=== PATIENT | male | born 1935 | race Caucasian/White ===

== ENCOUNTER 2016-10-28 07:01 | Day surgery (SDC) | payer MEDICARE, OTHER ==
[~2016-10-28 07:01] MED LIST: CIPROFLOXACIN HCL 500 MG TABLET PO PRN
--- OUTSIDE RECORDS SUMMARY | 2016-10-28 07:04 | XMS REPORT | Continuity of Care Document ---
:1935 Author Organization [facility] ([facility]) Address [address] [place] [place] [address] Phone [phone] Care Team Providers Name Role Phone NaomyElijah Primary Care Provider [phone] Source Comments This disclosure is being made pursuant to the Care Everywhere program, applicable federal and state laws, and may not contain all informaitonavailable regarding this patient.[facility] ([facility]) Active Allergies and Adverse Reactions Allergen Noted Date Severity Reactions Comments Oxybutynin Chloride 07/06/2014 OTHER Causes abdominal pain. Current Medications Prescription Sig. Disp. Refills Start Date End Date Status HYDROmorphone 4 mg Take 4 mg by mouth Active tablet every 3 hours as needed. levothyroxine 50 mcg Take 50 mcg by mouth Active tablet every morning before breakfast. cyanocobalamin inject 500 mcg Active (VITAMIN B-12) 1000 intramuscularly Every mcg/mL injection morning. loratadine 10 mg Take 10 mg by mouth Active tablet as needed. indomethacin 50 mg Take 50 mg by mouth 2 Active capsule times daily as needed. pravastatin 40 mg Take 40 mg by mouth Active tablet at bedtime. zolpiDEM 10 mg Take 10 mg by mouth Active tablet at bedtime as needed. omeprazole 40 mg Take 40 mg by mouth Active enteric coated daily. capsule flurazepam 15 mg Take 15 mg by mouth Active capsule at bedtime as needed. sildenafil (VIAGRA) Take 50 mg by mouth Active 50 mg tablet as needed. Take 1 hour prior to sexual activity. naproxen 500 mg Take 500 mg by mouth Active tablet 2 times daily as needed. DULoxetine 20 mg XR Take 20 mg by mouth Active capsule daily. multivitamin with Take 1 Tab by mouth Active minerals tablet daily. ALPRAZolam 0.25 mg Take 0.25 mg by mouth Active tablet daily as needed. finasteride 5 mg Take 1 tablet (5 mg 60 tablet 6 12/18/2015 Active tablet total) by mouth daily. Active Problems Problem Noted Date Bleeding in head following injury with loss of consciousness 05/14/2013 Immunizations Name Dates Previously Given Next Due Influenza, unspecified 02/12/2013 Pneumococcal, unspecified 05/14/2010 Social History Tobacco Use Types Packs/Day Years Used Date Never Smoker Smokeless Tobacco: Never Used Alcohol Use Drinks/Week oz/Week Comments No Last Filed Vital Signs Vital Sign Reading Time Taken Blood Pressure 140/84 07/08/2014 11:35 AM SALESPERSON FLYING SQUAD Pulse 68 07/08/2014 11:35 AM SALESPERSON [employer]YING [employer]AD Temperature 36.7 C (98.1 F) 07/08/2014 11:35 AM SALESPERSON FLYING SQUAD Respiratory Rate 18 07/08/2014 11:35 AM SALESPERSON FLYING SQUAD Height 1.702 m (5' 7") 07/08/2014 11:35 AM SALESPERSON FLYING SQUAD Weight 71.668 kg (158 lb) 07/08/2014 11:35 AM SALESPERSON FLYING SQUAD Body Mass Index 24.74 07/08/2014 11:35 AM SALESPERSON [employer]YING SQUAD Oxygen Saturation 98% 07/08/2014 11:35 AM SALESPERSON [employer]YING SQUAD Plan of Care Health Maintenance Due Date Last Done Comments Hepatitis B Vaccine (1 of 3 - Primary Series) 1935 Tdap Vaccine 1946 Lipid Disorder Screening 1953 Td Vaccine 1953 Colonoscopy 07/12/1985 Zoster Vaccine 1995 Pneumococcal Vaccine (1 of 2 - PCV13) 2000 Influenza Vaccine: Seasonal (#1) 12/21/2015 02/12/2013 Results from Last 3 Months Not on file
--- OUTSIDE RECORDS SUMMARY | 2016-10-28 07:04 | XMS REPORT | Continuity of Care Document ---
:1935 Author Organization [facility] [place] [address] Care Team Providers Name Role Phone Elijah Moralez Primary Care Provider [phone] Source Comments This disclosure is being made pursuant to the [employer] program and maynot contain all information available regarding this patient.[facility] Active Allergies and Adverse Reactions Allergen Noted Date Severity Reactions Comments Oxybutynin Chloride 08/04/2016 Low Nausea Only Causes abdominal pain. Current Medications Be aware that medications may not be up to date as of this document. Alwaysverify current medications with the patient. Prescription Sig. Disp. Refills Start Date End Date Status levothyroxine Take 50 mcg by Active (SYNTHROID, mouth daily. LEVOTHROID) 50 MCG tablet MOVANTIK 25 MG TABS Take 1 tablet 06/03/2016 Active tablet by mouth daily. omeprazole Take 1 capsule 05/30/2016 Active (PRILOSEC) 40 MG by mouth capsule daily. fexofenadine Take 180 mg by Active (YESENIA ALLERGY) mouth daily as 180 MG tablet needed. pravastatin Take 40 mg by Active (PRAVACHOL) 40 MG mouth daily. tablet albuterol (PROAIR Inhale 2 puffs Active HFA;PROVENTIL into the lungs HFA;VENTOLIN HFA) every 4 (four) 108 (90 Base) hours as MCG/ACT inhaler needed for Wheezing. HYDROmorphone Take 3.5 210 tablet 0 10/10/2016 Active (DILAUDID) 8 MG tablets (28 mg tablet total) by mouth 2 (two) times daily. zolpidem (AMBIEN) Take 1 tablet 30 tablet 5 09/08/2016 10 MG tablet (10 mg total) 7 by mouth nightly as needed for Sleep. HYDROmorphone Take 3.5 210 tablet 0 09/08/2016 (DILAUDID) 8 MG tablets (28 mg 7 tablet total) by mouth 2 (two) times daily Earliest Fill Date: 09/08/16. HYDROmorphone Take 2 tablets 180 tablet 0 10/10/2016 Discontinued (DILAUDID) 4 MG (8 mg total) 7 tablet by mouth every 6 (six) hours as needed for Pain. HYDROmorphone Take 14 mg by Discontinued (DILAUDID) 4 MG mouth 2 (two) 7 tablet times daily. HYDROmorphone Take 3.5 210 tablet 0 10/10/2016 Discontinued (DILAUDID) 4 MG tablets (14 mg 7 tablet total) by mouth 2 (two) times daily. Active Problems Problem Noted Date Impaired fasting glucose 08/04/2016 Hyperlipidemia Hypertension Hypothyroidism (acquired) Most Recent Encounters Date Type Specialty Providers Description 10/10/2016 Orders Only Family Elijah Gill MD 10/10/2016 Refill Family Medicine Janet Del Rosario, LIZZY 10/10/2016 Refill Family Medicine Janet Del Rosario, TEXTILE CLOTHING AND FOOTWEAR MECHANIC 10/10/2016 Refill Family Medicine Janet Del Rosario, TEXTILE CLOTHING AND FOOTWEAR MECHANIC 10/10/2016 Refill Orthopedic Surgery Gin Kang, Aimee 09/08/2016 Refill Family Medicine CharlietMoni, RMA 08/12/2016 Office Visit Family Medicine Elijah Moralez, Essential hypertensionMD benign (Primary Dx); Mixed hyperlipidemia; Hypothyroidism (acquired); Impaired fasting blood sugar; Prostate cancer (HCC); Chest wall pain following surgery 08/04/2016 Abstract Family Medicine Janet Del Rosario, LIZZY 07/28/2016 Orders Only Provider, Not In System Immunizations Name Dates Previously Given Next Due Pneumococcal Polysaccharide-23 02/19/2006 Social History Tobacco Use Types Packs/Day Years Used Date Former Smoker Quit: 05/22/1944 Smokeless Tobacco: Never Used Alcohol Use Drinks/Week oz/Week Comments No Last Filed Vital Signs Vital Sign Reading Time Taken Blood Pressure 148/81 08/12/2016 8:42 AM CDT Pulse 67 08/12/2016 8:42 AM CDT Temperature 36.7 C (98 F) 08/12/2016 8:42 AM CDT Respiratory Rate 16 08/12/2016 8:42 AM CDT Height 1.448 m (4' 9") 08/12/2016 8:42 AM CDT Weight 70.761 kg (156 lb) 08/12/2016 8:42 AM CDT Body Mass Index 33.75 08/12/2016 8:42 AM CDT Oxygen Saturation 96% 08/12/2016 8:42 AM CDT Plan of Care Patient Goal Type Goal Blood Pressure Blood Pressure below 140/90 Date Type Specialty Providers Description 08/11/2017 Appointment Oncology Arpit Castillo MD [address] [place] [address] [phone] (Fax) Health Maintenance Due Date Last Done Comments Tetanus/Pertussis (1 - Tdap) 1954 Well Adult Visit 1985 Zoster Vaccine 60+ 1995 Pneumococcal Low/Medium Risk 65+ (2 of 2 - PCV13) 02/19/2007 02/19/2006 Influenza Immunization (#1) 2016 Results from Last 3 Months PSA (08/12/2016 8:45 AM) Component Value Range PSA 1.67 0.00-4.00 ng/mL Narrative Testing performed at [facility], [address] [place] [address].Bitumastic Applier Mark Louis MD TSH (08/12/2016 8:45 AM) Component Value Range TSH 2.105 0.350-4.940 uIU/mL Narrative Testing performed at [facility], [address] [place] [address].Bitumastic Applier Mark Louis MD Hemoglobin A1c (08/12/2016 8:45 AM) Component Value Range Hemoglobin A1C 5.7Comment: % Nondiabetic Patient:4.0 - 6.0 % Diabetic Patient: < 7.0 % Clinical correlation is essential Estimated Avg Glucose 117 mg/dL Narrative Testing performed at [facility], [address] [place] [address].Bitumastic Applier Mark Louis MD Lipid panel (08/12/2016 8:45 AM) Component Value Range Cholesterol 216(H)Comment:Cholesterol borderline high, 200- 0-200 mg/dL 239 mg/dl. Clinical correlation is essential. Triglycerides 118 0-200 mg/dL HDL Cholesterol 53(L) >60 mg/dL LDL Calculated 139.4Comment: mg/dL <100Optimal 100-129 Near Optimal/Above Optimal 130-159 Borderline High 160-189 High >yd=229Wqvf High Cholesterol/HDL Ratio 4.1Comment:HDL:Chol ratio Low Risk 1:3.3-1:4.3, Clinical Correlation essential. Narrative Testing performed at [facility], [address] [place] [address].Bitumastic Applier Mark Louis MD Comprehensive metabolic panel (08/12/2016 8:45 AM) Component Value Range Glucose 107(H)Comment: 60-100 mg/dL Fasting Plasma Glucose (FPG)<100 MG/DL Impaired Fasting Glucose (IFG) 100-125 MG/DL Provisional Diagnosis of Diabetes Mellitus > zy=263 MG/DL (Diagnosis Must Be Confirmed) BUN, Blood 19 8-26 mg/dL Creatinine 0.8 0.7-1.4 mg/dL Glomerular Filtration Rate 86 >80 mL/min/1.73mm2 Estimate Glomerlular Filtration Rate 99Comment:The estimated GFR has >80 mL/min/ 1.73mm2 Estimate- not been validated for women or patients with serious comorbid conditions, or with extremes of body size, muscle mass, or nutritional status. Calcium 9.0 8.4-10.2 mg/dL Sodium 137 136-145 mmol/L Potassium 4.4 3.4-4.9 mmol/L Chloride 104 99-111 mmol/L CO2 25.8 21.0-32.0 mmol/L Albumin 3.5 3.5-5.0 g/dL Total Protein 6.5 6.1-8.0 g/dL Bilirubin Total 0.6 0.2-1.2 mg/dL Alkaline Phosphatase 107 40-150 U/L AST 19 5-34 U/L ALT 15 0-55 u/L Narrative Testing performed at [facility], [address] [place] [address].Bitumastic Applier Mark Louis MD CBC auto differential (08/12/2016 8:45 AM) Component Value Range WBC 6.7 3.1-11.0 x10^3/uL RBC 4.92 4.29-5.55 x10^6/uL Hemoglobin 14.1 13.3-16.5 g/dL Hematocrit 41.9 39.2-48.0 % MCV 85.2 81.0-98.0 fL MCH 28.7 27.2-33.3 pg MCHC 33.7 31.7-35.6 g/dL RDW 13.4 11.4-13.6 % SD-RDW 40.9 36.4-46.3 fL Platelets 215 147-370 x10^3/uL MPV 10.2 9.1-12.1 fL NE% 74.4 42.0-76.0 % %LYMPH 13.6(L) 15.0-44.0 % %MONO 8.9 4.0-13.0 % % Eosinophils 2.4 0.0-6.0 % % Basophils 0.3 0.0-1.0 % Imm Gran Relative 0.4 0.0-1.0 % NE# 5.0 1.2-7.3 x10^3/uL Lymphs # 0.9 0.6-3.5 x10^3/uL [place]# 0.6 0.2-0.9 x10^3/uL Eosinophil # 0.2 0.0-0.4 x10^3/uL Baso# 0.0 0.0-0.1 x10^3/uL Imm Gran Absolute 0.03 0.00-0.10 x10^3/uL Specimen BLOOD Narrative Testing performed at [facility], [address] [place] [address].Bitumastic Applier Mark Louis MD
[2016-10-28 13:15] VITALS: BP 158/88
== END 2016-10-28 07:02 | disposition home or self-care (01) ==
LOC: AMB 07:01
PROVIDERS: ATTEND Urology
PROC: 3E1K88X Irrigation of Genitourinary Tract using Irrigating Substance, Via Natural or Artificial Opening Endoscopic, Diagnostic (ICD-10-PCS; 2016-10-28)
PROC: 0TJB8ZZ Inspection of Bladder, Via Natural or Artificial Opening Endoscopic (ICD-10-PCS; principal; 2016-10-28 08:20)
DX: D49.4 Neoplasm of unspecified behavior of bladder (principal); R31.0 Gross hematuria; Z85.51 Personal history of malignant neoplasm of bladder; Z68.25 Body mass index [BMI] 25.0-25.9, adult

== ENCOUNTER 2016-11-04 06:56 | Day surgery (SDC) | payer MEDICARE, OTHER ==
[~2016-11-04 06:56] MED LIST changes: -CIPROFLOXACIN HCL 500 MG TABLET PO PRN; +RINGERS SOLUTION,LACTATED 1,000 ML IV PRN; +ceFAZolin SODIUM 1 GM in DEXTROSE 5 % IN WATER 100 ML IV PRN
--- OUTSIDE RECORDS SUMMARY | 2016-11-04 07:01 | XMS REPORT | Continuity of Care Document ---
:1935 Author Organization [facility] ([facility]) Address [address] [place] [address] Phone [phone] Care Team Providers Name Role Phone NaomyElijah Primary Care Provider [phone] Source Comments This disclosure is being made pursuant to the Care Everywhere program, applicable federal and state laws, and may not contain all informaitonavailable regarding this patient.[facility] ([facility]) Active Allergies and Adverse Reactions Allergen Noted [...] Taken Blood Pressure 140/84 07/08/2014 11:35 AM FOUNDRY ENGINEER Pulse 68 07/08/2014 11:35 AM FOUNDRY ENGINEER Temperature 36.7 C (98.1 F) 07/08/2014 11:35 AM FOUNDRY ENGINEER Respiratory Rate 18 07/08/2014 11:35 AM FOUNDRY ENGINEER Height 1.702 m (5' 7") 07/08/2014 11:35 AM FOUNDRY ENGINEER Weight 71.668 kg (158 lb) 07/08/2014 11:35 AM FOUNDRY ENGINEER Body Mass Index 24.74 07/08/2014 11:35 AM FOUNDRY ENGINEER Oxygen Saturation 98% 07/08/2014 11:35 AM FOUNDRY ENGINEER Plan of Care Health Maintenance Due Date [...]
--- OUTSIDE RECORDS SUMMARY | 2016-11-04 07:01 | XMS REPORT | Continuity of Care Document ---
:1935 Author Organization [facility] [place] [address] Care Team Providers Name Role Phone Elijah Moralez Primary Care Provider [phone] Source Comments This disclosure is being made pursuant to the [employer] program and maynot contain all information available regarding this patient.[facility] Active Allergies and Adverse Reactions Allergen Noted [...] Wheezing. HYDROmorphone Take 3.5 210 tablet 0 11/03/2016 Active (DILAUDID) 8 MG tablets (28 mg tablet total) by mouth 2 (two) times daily Earliest Fill Date: 11/03/16. zolpidem (AMBIEN) Take 1 tablet 30 tablet [...] total) by mouth 2 (two) times daily. HYDROmorphone Take 3.5 210 tablet 0 10/10/2016 Discontinued (DILAUDID) 8 MG tablets (28 mg 7 tablet total) by mouth 2 (two) times daily. Active Problems Problem Noted Date Impaired fasting glucose 08/04/2016 Hyperlipidemia Hypertension Hypothyroidism (acquired) Most Recent Encounters Date Type Specialty Providers Description 11/02/2016 Refill Family Medicine Charliet, Moni S, RMA 10/31/2016 Orders Only Provider, Not In System 10/10/2016 Orders Only Family Elijah Gill MD 10/10/2016 Refill Family Medicine Janet Del Rosario A, BALE COVERER 10/10/2016 Refill Family Medicine Janet Del Rosario A, BALE COVERER 10/10/2016 Refill Family Medicine Janet Del Rosario, BALE COVERER 10/10/2016 Refill Orthopedic Surgery Gin Kang, RMA 09/08/2016 Refill Family Medicine Covert, Moni S, RMA 08/12/2016 Office Visit Family Elijah Gill Essential hypertensionMD benign (Primary Dx); Mixed hyperlipidemia; Hypothyroidism (acquired); Impaired fasting blood sugar; Prostate cancer (HCC); Chest wall pain following surgery 08/04/2016 Abstract Family Medicine Janet Del Rosario, BALE COVERER Immunizations Name Dates Previously Given Next Due [...] Description 08/11/2017 Appointment Oncology Arpit Castillo MD [address] [place] [address] [phone] (Fax) Health Maintenance Due Date Last Done Comments Tetanus/Pertussis (1 - Tdap) 1954 Well Adult Visit 1985 Zoster Vaccine 60+ 1995 Pneumococcal Low/Medium Risk 65+ (2 of 2 - PCV13) 02/19/2007 02/19/2006 Influenza Immunization (#1) 2016 Results from Last 3 Months US RETROPERITONEAL COMPLETE (10/24/2016)PSA (08/12/2016 8:45 AM) Component Value Range PSA 1.67 0.00-4.00 ng/mL Narrative Testing performed at [facility], [address] [place] [address].Lowerator Operator Mark Louis MD TSH (08/12/2016 8:45 AM) Component Value Range TSH 2.105 0.350-4.940 uIU/mL Narrative Testing performed at [facility], [address] [place] [address].Lowerator Operator Mark Louis MD Hemoglobin A1c (08/12/2016 8:45 AM) Component Value Range Hemoglobin A1C 5.7Comment: % Nondiabetic Patient:4.0 - 6.0 % Diabetic Patient: < 7.0 % Clinical correlation is essential Estimated Avg Glucose 117 mg/dL Narrative Testing performed at [facility], [address] [place] [address].Lowerator Operator Mark Louis MD Lipid panel (08/12/2016 8:45 AM) Component Value Range Cholesterol 216(H)Comment:Cholesterol borderline high, 200- 0-200 mg/dL 239 mg/dl. Clinical correlation is essential. Triglycerides 118 0-200 mg/dL HDL Cholesterol 53(L) >60 mg/dL LDL Calculated 139.4Comment: mg/dL <100Optimal 100-129 Near Optimal/Above Optimal 130-159 Borderline High 160-189 High >bp=552Izbb High Cholesterol/HDL Ratio 4.1Comment:HDL:Chol ratio Low Risk 1:3.3-1:4.3, Clinical Correlation essential. Narrative Testing performed at [facility], [address] [place] [address].Lowerator Operator Mark Louis MD Comprehensive metabolic panel (08/12/2016 8:45 AM) Component Value Range Glucose 107(H)Comment: 60-100 mg/dL Fasting Plasma Glucose (FPG)<100 MG/DL Impaired Fasting Glucose (IFG) 100-125 MG/DL Provisional Diagnosis of Diabetes Mellitus > rq=347 MG/DL (Diagnosis Must Be Confirmed) BUN, Blood [...] 15 0-55 u/L Narrative Testing performed at [facility], [address] [place] [address].Lowerator Operator Mark Louis MD CBC auto differential (08/12/2016 [...] 1.2-7.3 x10^3/uL Lymphs # 0.9 0.6-3.5 x10^3/uL [place]# 0.6 0.2-0.9 x10^3/uL Eosinophil # 0.2 0.0-0.4 x10^3/uL Baso# 0.0 0.0-0.1 x10^3/uL Imm Gran Absolute 0.03 0.00-0.10 x10^3/uL Specimen BLOOD Narrative Testing performed at [facility], [address] [place] [address].Lowerator Operator Mark Louis MD
[2016-11-04] MEDS ORDERED: RINGERS SOLUTION,LACTATED 1,000 ML IV ONE ×2 (07:30→08:05)
[2016-11-04 10:51] VITALS: BP 135/74
== END 2016-11-04 06:57 | disposition home or self-care (01) ==
LOC: AMB 06:56
PROVIDERS: ATTEND Urology
PROC: 0TBB8ZX Excision of Bladder, Via Natural or Artificial Opening Endoscopic, Diagnostic (ICD-10-PCS; principal; 2016-11-04 08:00)
DX: C67.9 Malignant neoplasm of bladder, unspecified (principal); Z68.25 Body mass index [BMI] 25.0-25.9, adult

== ENCOUNTER 2016-12-09 07:04 | Day surgery (SDC) | payer MEDICARE, OTHER ==
[~2016-12-09 07:04] MED LIST changes: +RINGER'S SOLUTION,LACTATED 1,000 ML IV PRN; -RINGERS SOLUTION,LACTATED 1,000 ML IV PRN; +oxyCODONE HCL/ACETAMINOPHEN 1 TAB TABLET PO PRN
--- OUTSIDE RECORDS SUMMARY | 2016-12-09 07:08 | XMS REPORT | Continuity of Care Document ---
:1935 Author Organization [employer] [place] [address] Care Team Providers Name Role Phone Thanh Pearce Nj Primary Care Provider [phone] Source Comments This disclosure is being made pursuant to the [employer] program and maynot contain all information available regarding this patient.[facility] Active Allergies and Adverse Reactions Allergen Noted Date Severity Reactions Comments Oxybutynin Chloride 08/04/2016 Low Nausea Only Causes abdominal pain. Current Medications Be aware that medications may not be up to date as of this document. Alwaysverify current medications with the patient. Prescription Sig. Disp. Refills Start Date End Date Status levothyroxine Take 50 mcg by Active (SYNTHROID, mouth daily. LEVOTHROID) 50 MCG [facility] script tablet MOVANTIK 25 MG TABS Take 1 tablet 06/03/2016 Active tablet by mouth daily. [facility] script omeprazole Take 1 capsule 05/30/2016 Active (PRILOSEC) 40 MG by mouth capsule daily. [facility] script fexofenadine Take 180 mg by Active (YESENIA ALLERGY) mouth daily as 180 MG tablet needed. [facility] script pravastatin Take 40 mg by Active (PRAVACHOL) 40 MG mouth daily. tablet [facility] script albuterol (PROAIR Inhale 2 puffs Active HFA;PROVENTIL into the lungs HFA;VENTOLIN HFA) every 4 (four) 108 (90 Base) hours as MCG/ACT inhaler needed. [facility] script zolpidem (AMBIEN) Take 10 mg by 11/02/2016 Active 10 MG tablet mouth nightly as needed. RAPAFLO 8 MG CAPS Take 8 mg by 09/27/2016 Active capsule mouth daily. Take in AM [facility] script HYDROmorphone Take 3.5 210 tablet 0 12/08/2016 Active (DILAUDID) 8 MG tablets (28 mg tablet total) by mouth 2 (two) times daily. HYDROmorphone Take 3.5 210 tablet 0 11/03/2016 Discontinued (DILAUDID) 8 MG tablets (28 mg 7 tablet total) by mouth 2 (two) times daily Earliest Fill Date: 11/03/16. Active Problems Problem Noted Date Impaired fasting glucose 08/04/2016 Hyperlipidemia Hypertension Hypothyroidism (acquired) Most Recent Encounters Date Type Specialty Providers Description 12/08/2016 Orders Only Family Medicine Thanh Pearce, COFFEE WEIGHER 11/24/2016 Office Visit Family Medicine Thanh Pearce, Medication management COFFEE WEIGHER (Primary Dx) 11/10/2016 Orders Only Elijah Moralez MD 11/02/2016 Refill Family Medicine Covert, YOLI Benoit 10/31/2016 Orders Only Provider, Not In System 10/10/2016 Orders Only Family Medicine Elijah Moralez MD 10/10/2016 Refill Family Medicine [place], Janet A, PACKAGE HANDLER 10/10/2016 Refill Family Medicine [place], Janet A, PACKAGE HANDLER 10/10/2016 Refill Family Medicine [place] Janet A, PACKAGE HANDLER 10/10/2016 Refill Orthopedic Surgery Gin Kang, RMA Immunizations Name Dates Previously Given Next Due Influenza, Unspecified 02/04/2016 Pneumococcal Polysaccharide-23 02/19/2006 Tdap 11/28/2013 Zoster 09/18/2013 Social History Tobacco Use Types Packs/Day Years Used Date Former Smoker Quit: 05/22/1944 Smokeless Tobacco: Never Used Alcohol Use Drinks/Week oz/Week Comments No Last Filed Vital Signs Vital Sign Reading Time Taken Blood Pressure 133/83 11/24/2016 10:22 AM CDT Pulse 79 11/24/2016 10:22 AM CDT Temperature 36.3 C (97.3 F) 11/24/2016 10:22 AM CDT Respiratory Rate 17 11/24/2016 10:22 AM CDT Height 1.448 m (4' 9") 08/12/2016 8:42 AM CDT Weight 70.761 kg (156 lb) 08/12/2016 8:42 AM CDT Body Mass Index 33.75 08/12/2016 8:42 AM CDT Oxygen Saturation 92% 11/24/2016 10:22 AM CDT Plan of Care Patient Goal Type Goal Blood Pressure Blood Pressure below 140/90 Date Type Specialty Providers Description 02/06/2017 Appointment Family Medicine 08/11/2017 Appointment Oncology Arpit Castillo MD [facility] [address] [phone] (Fax) Health Maintenance Due Date Last Done Comments Well Adult Visit 1985 Pneumococcal Low/Medium Risk 65+ (2 of 2 - PCV13) 02/19/2007 02/19/2006 Influenza Immunization (#1) 2017 02/04/2016 Tetanus/Pertussis (2 - Td) 11/29/2023 11/28/2013 Zoster Vaccine 60+ Completed 09/18/2013 Results from Last [address] ABDOMEN AND PELVIS WO CONTRAST (10/31/2016)CT CHEST W CONTRAST (10/31/2016) Medical Cytology (10/28/2016)US RETROPERITONEAL COMPLETE (10/24/2016) Insurance Payer Benefit Plan / Group Subscriber ID Type Phone Address MEDICARE MEDICARE A AND B [id number] [phone] [address] [place] [address] //MEDICAR [id number] EPR Home: [phone] [place] [phone]
[2016-12-09] MEDS ORDERED: WATER FOR INJECTION STERILE IR PRN (08:30)
[2016-12-09] MEDS ORDERED: DOXORUBICIN HCL IR PRN (08:30)
[2016-12-09 13:38] VITALS: BP 132/84
== END 2016-12-09 07:05 | disposition home or self-care (01) ==
LOC: AMB 07:04
PROVIDERS: ATTEND Urology
PROC: 0V508ZZ Destruction of Prostate, Via Natural or Artificial Opening Endoscopic (ICD-10-PCS; 2016-12-09)
PROC: 0W3R8ZZ Control Bleeding in Genitourinary Tract, Via Natural or Artificial Opening Endoscopic (ICD-10-PCS; 2016-12-09)
PROC: 0TBC8ZX Excision of Bladder Neck, Via Natural or Artificial Opening Endoscopic, Diagnostic (ICD-10-PCS; principal; 2016-12-09 08:00)
DX: D30.3 Benign neoplasm of bladder (principal); N40.1 Benign prostatic hyperplasia with lower urinary tract symptoms; N13.8 Other obstructive and reflux uropathy; Z85.51 Personal history of malignant neoplasm of bladder; Z68.25 Body mass index [BMI] 25.0-25.9, adult

== ENCOUNTER 2019-11-01 15:54 | Inpatient (IN) ==
[2019-11-01] MEDS ORDERED: ONDANSETRON HCL/PF 2 MG/ML VIAL IV ONE ×2 (16:41→19:08)
[2019-11-01] MEDS ORDERED: NORMAL SALINE 1,000 ML IV ONE ×2 (16:41→18:38)
--- NOTE | 2019-11-01 16:55 | ERNOTE ---
<Timothy Bates - Last Filed: 11/01/19 19:25> Medical Problem HPI - Narrative Date of Service: 11/01/19 - General Chief Complaint: Nausea/Vomiting Time Seen by Provider: 11/01/19 16:31 Source: patient Exam Limitations: no limitations - Immun/Allergies/Home Medications Immunizations: IMMUNIZATION HX Immunizations Up to Date Yes History of Influenza Vaccine No Hx Pneumococcal Vaccination No Allergies/Adverse Reactions: Allergies atorvastatin [From Lipitor] Adverse Reaction (Verified 11/01/19 16:12) Diarrhea esomeprazole [From Nexium] Adverse Reaction (Verified 11/01/19 16:12) Diarrhea Home Medications: HOME MEDICATIONS Omeprazole [Prilosec] 40 mg PO DAILY 02/13/15 [Last Taken 10/19/17] Ciprofloxacin HCl [Cipro] 500 mg PO BID 11/01/19 [Last Taken Unknown] Cyclobenzaprine HCl 10 mg PO TID PRN 11/01/19 [Last Taken Unknown] Doxycycline Monohydrate 100 mg PO BID 11/01/19 [Last Taken Unknown] Gabapentin 800 mg PO TID 11/01/19 [Last Taken Unknown] Melatonin/Pyridoxine HCl (B6) [Melatonin 3 mg Tablet] 3 mg PO HS 11/01/19 [Last Taken Unknown] Methadone HCl [Methadone] 10 mg PO .Q4HRS 11/01/19 [Last Taken Unknown] Naltrexone HCl [ReVia] 50 mg PO HS 11/01/19 [Last Taken Unknown] Ondansetron [Zofran Odt] 4 mg PO Q8H PRN 11/01/19 [Last Taken Unknown] Prazosin HCl 2 mg PO HS 11/01/19 [Last Taken Unknown] QUEtiapine FUMARATE [Seroquel] 100 mg PO HS 11/01/19 [Last Taken Unknown] diphenhydrAMINE HCL [Benadryl] 25 mg PO HS PRN 11/01/19 [Last Taken Unknown] - History of Present History Narrative: patient presents to ed with nausea and vomiting has stasge four bladder and prostate ca with mets recently dx with uti on cipro Timing: constant, getting worse Severity: moderate Modifying Factors - (Improves): Present: other - nothing Modifying Factors - (Worsens): Present: eating Review of Systems - Review of Systems Constitutional: Present: See HPI EYE: Present: no symptoms reported ENT: Present: no symptoms reported Respiratory: Present: no symptoms reported Cardiology: Present: no symptoms reported Gastrointestinal/Abdominal: Present: See HPI, nausea, vomiting, diarrhea Genitourinary: Present: no symptoms reported Musculoskeletal: Present: no symptoms reported Skin: Present: no symptoms reported Neurological: Present: no symptoms reported Endocrine: Present: no symptoms reported Hematologic/Lymphatic: Present: no symptoms reported Medical History (Last Updated 11/01/19 @ 16:13 by Rajani Vaughn, RN) Bladder cancer metastasized to bone Surgical History: Surgical History (Last Updated 11/01/19 @ 16:14 by Rajani Vaughn RN) Hx of appendectomy Hx of knee surgery Hx of tonsillectomy History of bladder surgery History of lung surgery History of prostate surgery Port-A-Cath in place Social History: (Last Reviewed 11/01/19 @ 16:54 by Shyla Eddy RN) Tobacco: Smoking Status: Never smoker Alcohol: alcohol intake: never Substance Use: substance use type: does not use Physical Exam - Physical Exam General Appearance: Present: moderate distress, anxious Head Exam: Present: normal inspection, no evidence of injury Eye Exam: Normal inspection: bilateral, PERRL: bilateral, EOMI: bilateral Ears, Nose, Throat: Present: normal ENT inspection, normal pharynx Neck: Present: normal inspection, nontender Respiratory: Present: no respiratory distress, normal breath sounds, no accessory muscle use, chest nontender, lungs clear Cardiovascular/Chest: Present: regular rate, rhythm, no murmur, normal peripheral pulses Gastrointestinal/Abdominal: Present: tenderness, distended, other - urostomy tube through right abdomen Back Exam: Present: normal inspection, normal range of motion, no CVA tenderness, no vertebral tenderness Extremity Exam: Present: normal inspection, normal range of motion, no edema Neurological Exam: Present: alert, oriented, normal mood/affect, no motor/sensory deficits Skin Exam: Present: normal color, warm/dry Lymphatic Exam: Present: no adenopathy Progress - Date and Time Seen: Date and Time: 11/01/19 18:37 nausea improved, discuus labs and x-rays with patient and abdomen shows possible obstruction, recommend ct of abdomen, family willing to proceed with ct, patient remains dnr - Results and Orders Patient's Lab Results:: I have reviewed the patient's lab results. - Vital Signs Patient's Vital Signs:: I have reviewed the patient's vital signs. Vital Signs: Vital Signs 11/01/19 16:06 Temperature 36.9 C Pulse Rate 94 Respiratory Rate 16 Blood Pressure 91/52 O2 Sat by Pulse Oximetry 95 - EKG EKG #1 EKG: NSR - X-Ray X-Ray #1 X-Ray: chest - metastaic process in chest, abdomen possible bowel obstruction Interpretation: Interp. by me - Progress/Reassessment Chief Complaint: Nausea/Vomiting - Transfer of Care Physician Sign Out: Timothy Bates Receiving Physician: Reji Whiteside Expected Disposition: Admit Plan - Plan Plan: to admit to hospital Departure Clinical Impression: Ileus, Sepsis secondary to UTI, Constipation by delayed colonic transit Abdominal pain Qualifiers: Abdominal location: generalized Qualified Code(s): R10.84 - Generalized abdominal pain Hydronephrosis Qualifiers: Hydronephrosis type: unspecified Qualified Code(s): N13.30 - Unspecified hydronephrosis - Departure Disposition: Short Term Hospital Inpatient Condition: Poor Referrals: Elijah Moralez MD [Primary Care Provider] - <Reji Whiteside - Last Filed: 11/01/19 21:49> Medical Problem HPI - General Source: old records - Immun/Allergies/Home Medications Immunizations: IMMUNIZATION HX Immunizations Up to Date Yes History of Influenza Vaccine No Hx Pneumococcal Vaccination No Medical History (Last Updated 11/01/19 @ 16:13 by Rajani Vaughn RN) Bladder cancer metastasized to bone Surgical History: Surgical History (Last Updated 11/01/19 @ 16:14 by Rajani Vaughn RN) Hx of appendectomy Hx of knee surgery Hx of tonsillectomy History of bladder surgery History of lung surgery History of prostate surgery Port-A-Cath in place Social History: (Last Reviewed 11/01/19 @ 16:54 by Shyla Eddy RN) Tobacco: Smoking Status: Never smoker Alcohol: alcohol intake: never Substance Use: substance use type: does not use Progress - Results and Orders Patient's Lab Results:: I have reviewed the patient's lab results. - Vital Signs Patient's Vital Signs:: I have reviewed the patient's vital signs. Vital Signs: Vital Signs 11/01/19 16:06 11/01/19 16:52 11/01/19 17:22 Temperature 36.9 C Pulse Rate 94 96 87 Respiratory Rate 16 22 H 21 H Blood Pressure 91/52 107/56 108/59 O2 Sat by Pulse Oximetry 95 92 L 91 L 11/01/19 17:52 11/01/19 18:42 11/01/19 19:03 Temperature Pulse Rate 86 84 89 Respiratory Rate 18 20 20 Blood Pressure 109/61 110/60 128/68 O2 Sat by Pulse Oximetry 91 L 92 L 92 L 11/01/19 19:14 11/01/19 19:54 Temperature Pulse Rate 87 93 Respiratory Rate 20 Blood Pressure 130/62 O2 Sat by Pulse Oximetry 94 - EKG EKG #1 EKG read: Reviewed by me - X-Ray X-Ray #1 Interpretation: Reviewed by me X-Ray #2 X-Ray: abdomen Interpretation: Reviewed by me - CT/Ultrasound CT/Ultrasound Narrative: CT shows: 1. Small left pleural effusion and bibasilar airspace disease 2. Cholelithiasis with no pericholecystic inflammation. 3. Bilateral hydronephrosis, left greater than right. 4. Large for volume of stool in colon and rectum with mild stranding inflammation to the proximal descending colon. Infectious or inflammatory process not excluded. 5. There is prominence of the proximal jejunum which is nonspecific but may represent a focal ileus. 6. Bony metastasis disease is noted. - Transfer of Care Expected Disposition: Admit Plan - Plan Plan: Patient did show signs of dehydration with specific gravity being 30 on his UA. Also still show signs of UTI. CT of the abdomen is pending. Given patient's leukocytosis and bandemia, UTI with sepsis is possible. We will give a dose of Rocephin here in the ER, patient has been on Cipro. Given patient's leukocytosis bandemia and UTI, respiratory rate of 20 patient fits diagnosis of sepsis from UTI. Will admit for this as well as for his ileus for which we will put him on IV fluids and make him n.p.o. Due to his significant constipation we will do an enema. For his hydronephrosis we will follow his labs, his ostomy for his bladder appears to be patent at this time. These were all discussed with Dr. rivera who is willing to accept patient for admission.
[2019-11-01 17:10] LABS: Hematocrit 27.4 % (42.0-52.0); Hemoglobin 8.4 gm/dL (13.5-18.0); Mean Cell Volume 79.4 fl (78-100); Mean Corpuscular Hemoglobin 24.3 pg (27-31); Mean Corpuscular Hgb Conc 30.7 g/dl (32-36); Mean Platelet Volume 8.7 fl (8-11.3); Platelet Count 233 K/mm3 (150-450); Red Blood Count 3.45 M/mm3 (4.7-6.0); White Blood Count 17.5 K/mm3 (4.0-10.5)
[2019-11-01 17:14] LABS: Total Cells Counted 100
[2019-11-01 17:37] LABS: Albumin * 1.9 gm/dl (3.4-5.0); Anion Gap 14.7 mmol/L (6.8-13.8); BUN/Creatinine Ratio 15.9 (9.0-21.6); Bilirubin, Total 0.5 mg/dL (0.0-1.1); Ca. Corrected For Albumin 7.8 mg/dL (8.4-10.2); Calcium * 6.4 mg/dL (7.9-10.9); Carbon Dioxide 22.9 mmol/L (24-32.6); Potassium 3.6 mmol/L (3.4-4.6); Total Protein 5.6 gm/dL (6.2-8.2)
[2019-11-01 17:57] LABS: Band 12 % (0-2.0); Immature Granulocyte 1 (0-1); Lymphocyte 1 % (20-51); Neutrophil 86 % (42-75); Neutrophil # 15.1 K/mm3 (1.3-6.0)
[2019-11-01 17:59] LABS: Anisocytosis 2+; Platelet Estimate Normal (NORMAL)
[2019-11-01 18:28] LABS: Urine Bilirubin 1 mg/dl (NEGATIVE); Urine Blood 50 /ul (NEGATIVE); Urine Ketone 5 mg/dL (NEGATIVE); Urine Nitrite Negative (NEGATIVE); Urine Protein 100 mg/dL (NEGATIVE); Urine Specific Gravity >=1.030 SP.GR. (1.005-1.030); Urine Urobilinogen Normal (NORMAL)
[2019-11-01] MEDS ORDERED: DIATRIZOATE MEGLUMINE, SODIUM 30 ML BTL PO ONE (18:42)
[2019-11-01 18:57] LABS: Urine Appearance Cloudy (CLEAR); Urine Color Yellow
[2019-11-01 18:58] LABS: Urine Bacteria 1+
[2019-11-01 18:59] LABS: Urine Mucus Moderate - 2+
[2019-11-01] MEDS: cefTRIAXone SODIUM 1,000 MG/100 ML BAG IV ONE ×2 (20:31→21:04)
[2019-11-01] MEDS ORDERED: ENOXAPARIN SODIUM 40 MG/0.4 ML SYRG SC SCH (22:00)
[2019-11-01] MEDS: RINGER'S SOLUTION,LACTATED 1,000 ML IV PRN (23:05)
[2019-11-02] MEDS ORDERED: POLYETHYLENE GLYCOL 3350 119 GM BTL PO SCH (01:00)
[2019-11-02] MEDS ORDERED: POLYETHYLENE GLYCOL 3350 17 GM PACKET PO ONE (01:04)
[2019-11-02] MEDS: ONDANSETRON HCL/PF 2 MG/ML VIAL IV PRN ×3 (01:06→09:35)
[2019-11-02] MEDS: SENNOSIDES 8.6 MG TABLET PO SCH ×3 (01:14→21:27)
[2019-11-02] MEDS: RINGER'S SOLUTION,LACTATED 1,000 ML IV PRN ×3 (07:41→23:30)
[2019-11-02] MEDS ORDERED: ACETAMINOPHEN 325 MG TABLET PO PRN (10:12)
[2019-11-02] MEDS: POLYETHYLENE GLYCOL 3350 17 GM PACKET PO SCH (10:55)
--- NOTE | 2019-11-02 10:59 | HP ---
Chief Complaint - Chief Complaint Date of Service: 11/02/19 Time of Service: 10:26 Chief Complaint: I have abdominal pain, nausea and vomiting, and stool retention for several days. History of Present Illness: 84-year-old male with past medical history of bladder cancer and prostate cancer with metastasis to bone, currently on chemotherapy, bladder ostomy status, hypothyroidism was evaluated in the ER due to ongoing nausea and vomiting, stool retention, abdominal pain, and dehydration. According to the patient the symptoms started several days ago and he was evaluated in an ER in [place] where he was diagnosed with a UTI and was prescribed oral antibiotics and discharged home. However since being discharged and despite taking the antibiotics the patient became more ill. His vomiting increased and the vomitus was of a fecal-like fluid with a foul odor and his abdominal pain became intensified and accompanied by significant distention. While in our ER the patient underwent evaluation with labs that demonstrated significant leukocytosis with left shift, anemia, significant hypocalcemia, and a subsequent elevated lactic acid. Given these findings a diagnosis of sepsis was determined and the patient was started on IV fluids and IV antibiotics. Preliminary interpretation of the abdominal CT was said to be an ileus so patient was admitted with a plan that included administration of an enema, making him n.p.o, managing his pain, and possibly placing a nasogastric tube to address the distention. However this morning after the patient had been admitted I was informed that final reading of the abdominal CT by the radiologist confirmed a bowel obstruction. I was later informed that there is no surgery service available here [facility] this weekend so surgery consult would not be an option. Patient's was contacted and the situation was explained to her, she said she would discuss it with the patient's children to reach a decision whether or not to transfer him or keep him here and treat symptoms. She is scheduled to come during visiting hours for further discussion on the patient's management. In the meantime, the patient was treated with a Fleet enema which was ineffective he was only able to pass brown fluid. An attempt to administer MiraLAX and stool softener failed when the patient started vomiting. Currently he appears uncomfortable and has significant distention and appears to be confused making an evaluation difficult. However at the moment he maintains stable vitals and is saturating adequately so we will continue to monitor and attempt other measures to make him as comfortable as possible. Medical History (Last Updated 11/01/19 @ 23:53 by Jazmine Zhang RN) Bladder cancer metastasized to bone Metastasis to bone Prostate CA Surgical History: Surgical History (Last Reviewed 11/01/19 @ 23:18 by Jazmine Zhang RN) Hx of appendectomy Hx of knee surgery Hx of tonsillectomy History of bladder surgery History of lung surgery History of prostate surgery Port-A-Cath in place Social History: (Last Reviewed 11/01/19 @ 23:18 by Jazmine Zhang RN) Tobacco: Smoking Status: Never smoker Alcohol: alcohol intake: never Substance Use: substance use type: does not use Peds Patient Hx - Developmental: No Pertinent Hx Peds Patient Hx - Medical: No Pertinent Hx Peds Patient Hx - Cardiac/Respiratory: No Pertinent Hx Peds Patient Hx - Surgical: No Surgical History Patient History - Cancer: No Hx of Cancer Review Of Systems (GEN) - Review of Systems Generalized/Overall Review: Present: Weakness, Weight loss EENTM: Present: No Symptoms Reported Respiratory: Present: Wheezing Cardiac: Present: No Symptoms Reported Abdominal: Present: Nausea, Vomiting, Abdominal Pain, Constipation Genitourinary: Present: No Symptoms Reported Musculoskeletal: Present: No Symptoms Reported Neurological: Present: Pre-existing Deficit Skin: Present: Change in Color Endocrine: Present: No Symptoms Reported Immunizations: IMMUNIZATION HX Immunizations Up to Date Yes History of Influenza Vaccine No Hx Pneumococcal Vaccination No Allergies/Adverse Reactions: Allergies Allergy/AdvReac Type Severity Reaction Status Date / Time atorvastatin [From Lipitor] AdvReac Diarrhea Verified 11/01/19 16:12 esomeprazole [From Nexium] AdvReac Diarrhea Verified 11/01/19 16:12 Home Medications: HOME MEDICATIONS Omeprazole [Prilosec] 40 mg PO DAILY 02/13/15 [Last Taken 10/19/17] Ciprofloxacin HCl [Cipro] 500 mg PO BID 11/01/19 [Last Taken Unknown] Cyclobenzaprine HCl 10 mg PO TID PRN 11/01/19 [Last Taken Unknown] Doxycycline Monohydrate 100 mg PO BID 11/01/19 [Last Taken Unknown] Gabapentin 800 mg PO TID 11/01/19 [Last Taken Unknown] Melatonin/Pyridoxine HCl (B6) [Melatonin 3 mg Tablet] 3 mg PO HS 11/01/19 [Last Taken Unknown] Methadone HCl [Methadone] 10 mg PO 11/01/19 [Last Taken Unknown] Naltrexone HCl [ReVia] 25 mg PO HS 11/01/19 [Last Taken Unknown] Ondansetron [Zofran Odt] 4 mg PO Q8H PRN 11/01/19 [Last Taken Unknown] Prazosin HCl 2 mg PO HS 11/01/19 [Last Taken Unknown] QUEtiapine FUMARATE [Seroquel] mg PO HS 11/01/19 [Last Taken Unknown] diphenhydrAMINE HCL [Benadryl] 25 mg PO HS PRN 11/01/19 [Last Taken Unknown] Levothyroxine Sodium [Synthroid] 50 mcg PO DAILY 11/02/19 [Last Taken Unknown] Exam - Exam Vital Signs: Vital Signs - Last Taken Temp 36.3 C 11/02/19 06:00 Pulse 85 11/02/19 06:00 Resp 16 11/02/19 06:00 BP 111/59 11/02/19 06:00 Pulse Ox 93 11/02/19 06:00 Constitutional: Present: Alert, Cooperative, Well developed, Mild distress, Somnolent, Elderly, Thin and frail, Looks Older than stated age ENT Exam: Present: normal ENT inspection, hearing grossly normal Eye Exam: bilateral eye: normal inspection, PERRL, EOMI Neck: Present: non-tender, full range of motion, supple, normal inspection, trachea midline Back Exam: Present: normal inspection, no CVA tenderness, no vertebral tenderness Breasts: Present: Exam deferred Respiratory: Present: no respiratory distress, crackles, rhonchi, wheezing Cardiovascular/Chest: Present: normal peripheral pulses, regular rate, rhythm, no chest tenderness, no edema, no gallop, no JVD, no murmur, no rub Peripheral Pulses: carotid (R): 3+, carotid (L): 3+, dorsalis-pedis (R): 2+, dorsalis-pedis (L): 2+ Abdomen: Present: no hepatospenomegaly, tender - Generalized tenderness, rigidity, other - Stoma site with ostomy bag in right abdomen, no signs of infection or leakage., distended, hypoactive /Rectal: Present: Exam deferred Extremity: Present: normal range of motion, non-tender, normal inspection, no pedal edema Skin Exam: Present: warm/dry, no cyanosis, pallor Lymphatic: Present: no adenopathy Neurologic: Present: chorus master II-XII nml as tested, no motor/sensory deficits, alert Appearance: Present: impaired insight, impaired recent memory, impaired remote memory Eye contact: Present: cooperative, good eye contact, normal speech Thoughts: Present: no apparent hallucination Diagnostic Studies: Abnormal Lab Results 11/01/19 11/01/19 11/01/19 Range/Units 17:00 17:00 18:14 WBC 17.5 H (4.0-10.5) K/mm3 RBC 3.45 L (4.7-6.0) M/mm3 Hgb 8.4 L (13.5-18.0) gm/dL Hct 27.4 L (42.0-52.0) % MCH 24.3 L (27-31) pg MCHC 30.7 L (32-36) g/dl RDW 22.0 H (11.5-14.0) % Neutrophils % (Manual) 86 H (42-75) % Band Neuts % (Manual) 12 H (0-2.0) % Lymphocytes % (Manual) 1 L (20-51) % Neutrophils # (Manual) 15.1 H (1.3-6.0) K/mm3 Lymphocytes # (Manual) 0.2 L (1.5-3.5) k/mm3 Carbon Dioxide 22.9 L (24-32.6) mmol/L Anion Gap 14.7 H (6.8-13.8) mmol/L Est GFR (Non-Af Amer) 58 L (60-130) mL/min Random Glucose 151 H (70-110) mg/dL Lactic Acid, Venous (0.4-2.0) mmol/L Calcium 6.4 L (7.9-10.9) mg/dL Calcium Adj for Albumin 7.8 L (8.4-10.2) mg/dL ALT 7 L (19-67) U/L Alkaline Phosphatase 291 H (50-170) U/L Total Protein 5.6 L (6.2-8.2) gm/dL Albumin 1.9 L (3.4-5.0) gm/dl Lipase 34 L (73-393) U/L Urine Protein 100 H (NEGATIVE) mg/dL Urine Glucose (UA) 250 H (NEGATIVE) mg/dL Urine Blood 50 H (NEGATIVE) /ul Urine Bilirubin 1 H (NEGATIVE) mg/dl Prot Sulfosalicylic Acd 2+ H (0) mg/dL Urine RBC 5-10 H (0-5) /hpf Urine WBC 5-10 H (0-5) /hpf Urine Bacteria 1+ H (NONE) Coarse Granular Casts 10-25 H (NONE) /LPF WBC Casts 10-25 H (NONE) /LPF Urine Mucus Moderate - 2+ H (NONE) 11/02/19 Range/Units 01:10 WBC (4.0-10.5) K/mm3 RBC (4.7-6.0) M/mm3 Hgb (13.5-18.0) gm/dL Hct (42.0-52.0) % MCH (27-31) pg MCHC (32-36) g/dl RDW (11.5-14.0) % Neutrophils % (Manual) (42-75) % Band Neuts % (Manual) (0-2.0) % Lymphocytes % (Manual) (20-51) % Neutrophils # (Manual) (1.3-6.0) K/mm3 Lymphocytes # (Manual) (1.5-3.5) k/mm3 Carbon Dioxide (24-32.6) mmol/L Anion Gap (6.8-13.8) mmol/L Est GFR (Non-Af Amer) (60-130) mL/min Random Glucose (70-110) mg/dL Lactic Acid, Venous 2.4 H* (0.4-2.0) mmol/L Calcium (7.9-10.9) mg/dL Calcium Adj for Albumin (8.4-10.2) mg/dL ALT (19-67) U/L Alkaline Phosphatase (50-170) U/L Total Protein (6.2-8.2) gm/dL Albumin (3.4-5.0) gm/dl Lipase (73-393) U/L Urine Protein (NEGATIVE) mg/dL Urine Glucose (UA) (NEGATIVE) mg/dL Urine Blood (NEGATIVE) /ul Urine Bilirubin (NEGATIVE) mg/dl Prot Sulfosalicylic Acd (0) mg/dL Urine RBC (0-5) /hpf Urine WBC (0-5) /hpf Urine Bacteria (NONE) Coarse Granular Casts (NONE) /LPF WBC Casts (NONE) /LPF Urine Mucus (NONE) Laboratory Results WBC 17.5 K/mm3 (4.0-10.5) H 11/01/19 17:00 RBC 3.45 M/mm3 (4.7-6.0) L 11/01/19 17:00 Hgb 8.4 gm/dL (13.5-18.0) L 11/01/19 17:00 Hct 27.4 % (42.0-52.0) L 11/01/19 17:00 MCV 79.4 fl (78-100) 11/01/19 17:00 MCH 24.3 pg (27-31) L 11/01/19 17:00 MCHC 30.7 g/dl (32-36) L 11/01/19 17:00 RDW 22.0 % (11.5-14.0) H 11/01/19 17:00 Plt Count 233 K/mm3 (150-450) 11/01/19 17:00 MPV 8.7 fl (8-11.3) 11/01/19 17:00 Neutrophils % (Manual) 86 % (42-75) H 11/01/19 17:00 Band Neuts % (Manual) 12 % (0-2.0) H 11/01/19 17:00 Lymphocytes % (Manual) 1 % (20-51) L 11/01/19 17:00 Immature Granulocytes 1 (0-1) 11/01/19 17:00 Neutrophils # (Manual) 15.1 K/mm3 (1.3-6.0) H 11/01/19 17:00 Lymphocytes # (Manual) 0.2 k/mm3 (1.5-3.5) L 11/01/19 17:00 Platelet Estimate Normal (NORMAL) 11/01/19 17:00 Anisocytosis 2+ 11/01/19 17:00 Malcolm Cells 1+ 11/01/19 17:00 Elliptocytes 1+ 11/01/19 17:00 Sodium 133 mmol/L (132-142) 11/01/19 17:00 Plasma Sodium 134 mmol/L (130-142) 11/01/19 17:00 Potassium 3.6 mmol/L (3.4-4.6) 11/01/19 17:00 Chloride 99 mmol/L (97-106) 11/01/19 17:00 Carbon Dioxide 22.9 mmol/L (24-32.6) L 11/01/19 17:00 Anion Gap 14.7 mmol/L (6.8-13.8) H 11/01/19 17:00 BUN 20 mg/dL (6-23) 11/01/19 17:00 Creatinine 1.26 mg/dL (0.4-1.4) 11/01/19 17:00 Est GFR (Non-Af Amer) 58 mL/min (60-130) L 11/01/19 17:00 BUN/Creatinine Ratio 15.9 (9.0-21.6) 11/01/19 17:00 Random Glucose 151 mg/dL (70-110) H 11/01/19 17:00 Lactic Acid, Venous 2.4 mmol/L (0.4-2.0) H* 11/02/19 01:10 Calcium 6.4 mg/dL (7.9-10.9) L 11/01/19 17:00 Calcium Adj for Albumin 7.8 mg/dL (8.4-10.2) L 11/01/19 17:00 Total Bilirubin 0.5 mg/dL (0.0-1.1) 11/01/19 17:00 AST 16 U/L (0-48) 11/01/19 17:00 ALT 7 U/L (19-67) L 11/01/19 17:00 Alkaline Phosphatase 291 U/L (50-170) H 11/01/19 17:00 Total Protein 5.6 gm/dL (6.2-8.2) L 11/01/19 17:00 Albumin 1.9 gm/dl (3.4-5.0) L 11/01/19 17:00 Amylase 47 U/L (25-115) 11/01/19 17:00 Lipase 34 U/L (73-393) L 11/01/19 17:00 Urine Color Yellow 11/01/19 18:14 Urine Appearance Cloudy (CLEAR) 11/01/19 18:14 Urine pH 6.0 pH (5.0-7.0) 11/01/19 18:14 Ur Specific [place] >=1.030 SP.GR. (1.005-1.030) 11/01/19 18:14 Urine Protein 100 mg/dL (NEGATIVE) H 11/01/19 18:14 Urine Glucose (UA) 250 mg/dL (NEGATIVE) H 11/01/19 18:14 Urine Ketones 5 mg/dL (NEGATIVE) 11/01/19 18:14 Urine Blood 50 /ul (NEGATIVE) H 11/01/19 18:14 Urine Nitrate Negative (NEGATIVE) 11/01/19 18:14 Urine Bilirubin 1 mg/dl (NEGATIVE) H 11/01/19 18:14 Urine Ictotest Negative (NEGATIVE) 11/01/19 18:14 Prot Sulfosalicylic Acd 2+ mg/dL (0) H 11/01/19 18:14 Urine Urobilinogen Normal EU/dl (NORMAL) 11/01/19 18:14 Ur Leukocyte Esterase Negative /ul (NEGATIVE) 11/01/19 18:14 Urine RBC 5-10 /hpf (0-5) H 11/01/19 18:14 Urine WBC 5-10 /hpf (0-5) H 11/01/19 18:14 Ur Epithelial Cells Trace /hpf (0-5) 11/01/19 18:14 Urine Bacteria 1+ (NONE) H 11/01/19 18:14 Coarse Granular Casts 10-25 /LPF (NONE) H 11/01/19 18:14 WBC Casts 10-25 /LPF (NONE) H 11/01/19 18:14 Urine Mucus Moderate - 2+ (NONE) H 11/01/19 18:14 Urine Culture Comments Culture to follow 11/01/19 18:14 Assessment/Plan - Narrative Narrative: Patient was evaluated medical chart was reviewed and decision to admit for diagnosis of sepsis secondary to UTI and possible aspiration pneumonia, dehydration, bowel obstruction, metastatic prostate and bladder cancer, was made. Currently the patient appears acutely ill, he is pale and has generalized weakness. He reports being uncomfortable and in pain due to his distended abdomen. He has ongoing vomiting despite IV antiemetics given every 4 hours PRN, the vomitus is a brown malodorous fluid likely fecal matter. Physical exam demonstrate generalized abdominal tenderness and hypoactive bowel sounds. Due to abnormal sounds transmitted from his lungs it is difficult to determine whether bowel sounds are even present or just hypoactive. Chest CT was ordered stat due to significant rhonchi crackles and wheezing which makes a suspicion of aspiration very high. Thankfully at the moment he is saturating adequately on room air and is not in any respiratory distress. We will make another attempt to administer a milk of magnesia enema in order to address the stool retention which makes him even more uncomfortable. Currently we do not have a surgery service available at [facility] this weekend so ongoing decision will occur once the patient's arrives about whether or not to transfer him where surgery can evaluate him or keep him here make him as comfortable as we can. Given his ongoing vomiting placement of NG tube at the moment is being considered but I will consult surgery service at [facility] to determine if it is safe to place it with such intense vomiting. In the meantime we will keep the patient n.p.o. continue treating him with IV hydration and continue to watch him closely. 12:20 pm On-call surgeon at [facility] was consulted on the phone and he recommended insertion of an NG tube with intermittent suctioning and to proceed with a chest x-ray to rule out aspiration. Antiemetics with switch from Zofran to Compazine for better control of the nausea and vomiting. Will discuss further with the family once the arrives. - Assessment/Plan (1) Bowel obstruction Problem: Acute Qualifiers: Intestinal obstruction type: fecal impaction Qualified Code(s): K56.41 - Fecal impaction (2) Dehydration Problem: Acute (3) Acute medical illness Problem: Acute (4) UTI (urinary tract infection) Problem: Acute (5) Sepsis Problem: Acute (6) Prostate cancer metastatic to bone Problem: Acute (7) Bladder cancer metastasized to bone Problem: Acute (8) Aspiration into respiratory tract Problem: Acute (9) Nausea and vomiting in adult Problem: Acute
[2019-11-02] MEDS ORDERED: LIDOCAINE HCL 50 ML VIAL IM ONE (11:11)
[2019-11-02] MEDS ORDERED: PROCHLORPERAZINE EDISYLATE 5 MG/ML VIAL IV PRN (11:13)
[2019-11-02] MEDS: ENOXAPARIN SODIUM 40 MG/0.4 ML SYRG SC SCH (11:37)
[2019-11-02] MEDS: PANTOPRAZOLE SODIUM 40 MG in NORMAL SALINE 100 ML IV SCH ×2 (11:38→21:27)
[2019-11-02] MEDS: ACETAMINOPHEN 1,000 MG/100 ML BTL IV PRN (22:51)
[2019-11-03 07:03] LABS: Hematocrit 25.7 % (42.0-52.0); Mean Cell Volume 79.8 fl (78-100); Mean Corpuscular Hemoglobin 24.5 pg (27-31); Mean Corpuscular Hgb Conc 30.7 g/dl (32-36); Mean Platelet Volume 8.7 fl (8-11.3); Neutrophil # 8.6 K/mm3 (1.3-6.0); Platelet Count 252 K/mm3 (150-450); Red Blood Count 3.22 M/mm3 (4.7-6.0); Red Cell Distribution Width 21.9 % (11.5-14.0); White Blood Count 9.4 K/mm3 (4.0-10.5)
[2019-11-03] MEDS: ACETAMINOPHEN 1,000 MG/100 ML BTL IV PRN (07:10)
[2019-11-03 07:16] LABS: Albumin * 1.6 gm/dl (3.4-5.0); BUN/Creatinine Ratio 17.2 (9.0-21.6); Bilirubin, Total 0.4 mg/dL (0.0-1.1); Ca. Corrected For Albumin 7.8 mg/dL (8.4-10.2); Calcium * 6.2 mg/dL (7.9-10.9); Carbon Dioxide 23.4 mmol/L (24-32.6); Potassium 3.4 mmol/L (3.4-4.6)
[2019-11-03] MEDS: RINGER'S SOLUTION,LACTATED 1,000 ML IV PRN ×2 (07:21→16:14)
[2019-11-03 07:23] LABS: Hemoglobin 7.9 gm/dL (13.5-18.0)
[2019-11-03] MEDS: PANTOPRAZOLE SODIUM 40 MG in NORMAL SALINE 100 ML IV SCH ×2 (09:31→22:29)
[2019-11-03] MEDS: ENOXAPARIN SODIUM 40 MG/0.4 ML SYRG SC SCH (09:34)
[2019-11-03] MEDS: SENNOSIDES 8.6 MG TABLET PO SCH ×2 (09:37→20:53)
[2019-11-03] MEDS: POLYETHYLENE GLYCOL 3350 17 GM PACKET PO SCH (09:38)
--- NOTE | 2019-11-03 11:33 | PN ---
Subjective - Date and Time Seen Date: 11/03/19 Time: 11:18 Subjective Narrative: I feel a little better but still have bloating in my stomach. 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 Patient appears more comfortable this morning thanks to the decompression of his stomach after placement of nasogastric tube. He maintains stable vitals and appears more hydrated. He is still draining a dark bilious fluid from the nasogastric tube and appears less distended. Patient also had 2 large bowel movements last night and one this morning after we administered the second enema of milk of magnesia. He also denies any nausea vomiting or any abdominal pain. However physical exam revealed abdominal distention and hypoactive bowel sounds so he is not completely out of the steele yet as far as the abdominal distention. We will administer another enema this morning in order to assist with the stool retention and obstruction. We will repeat his when she arrives to the hospital. - Review of Systems Generalized/Overall Review: Reports: No Symptoms Reported EENTM: Reports: No Symptoms Reported Respiratory: Reports: No Symptoms Reported Cardiac: Reports: No Symptoms Reported Abdominal: Reports: Abdominal Pain, Other - Abdominal bloating Genitourinary Symptoms: Reports: No Symptoms Reported Musculoskeletal Complaints: Reports: No Symptoms Reported Neurological: Reports: No Symptoms Reported Skin: Reports: No Symptoms Reported Endocrine: Reports: No Symptoms Reported - Vitals Vitals: Last Vital Signs Temp 36.5 C 11/03/19 10:37 Pulse 102 H 11/03/19 10:37 Resp 24 H 11/03/19 10:37 BP 127/61 11/03/19 10:37 Pulse Ox 92 L 11/03/19 10:37 - Abnormal Lab Findings Abnormal Lab Findings: Abnormal Lab Results 11/03/19 11/03/19 Range/Units 06:55 06:55 RBC 3.22 L (4.7-6.0) M/mm3 Hgb 7.9 L* (13.5-18.0) gm/dL Hct 25.7 L (42.0-52.0) % MCH 24.5 L (27-31) pg MCHC 30.7 L (32-36) g/dl RDW 21.9 H (11.5-14.0) % Immature Gran % (Auto) 2.10 H (0.001-0.429) % Immature Gran # (Auto) 0.20 H (0.000-0.0310) K/mm3 Neutrophils % 91.0 H (42-75.0) % Lymphocytes % 2.1 L (20-51) % Neutrophils # 8.6 H (1.3-6.0) K/mm3 Lymphocytes # 0.20 L (1.5-3.5) k/mm3 Carbon Dioxide 23.4 L (24-32.6) mmol/L Calcium 6.2 L (7.9-10.9) mg/dL Calcium Adj for Albumin 7.8 L (8.4-10.2) mg/dL ALT 6 L (19-67) U/L Alkaline Phosphatase 230 H (50-170) U/L Total Protein 5.0 L (6.2-8.2) gm/dL Albumin 1.6 L (3.4-5.0) gm/dl - Exam Constitutional: Present: Alert, Oriented x3, Cooperative, Well developed, No distress, Elderly ENT Exam: Present: normal ENT inspection, hard of hearing, other - Nasogastric tube in place Neck: Present: non-tender, full range of motion, supple, normal inspection, trachea midline Breasts: Present: Exam deferred Respiratory: Present: chest non-tender, no respiratory distress, no accessory muscle use, rhonchi Cardiovascular/Chest: Present: normal peripheral pulses, regular rate, rhythm, no chest tenderness, no edema, no gallop, no JVD, no murmur, no rub Abdomen: Present: tender - Generalized tenderness, distended, hypoactive /Rectal: Present: Exam deferred Extremity: Present: normal range of motion, non-tender, normal inspection, no pedal edema, no calf tenderness Skin Exam: Present: warm/dry, no cyanosis, pallor Lymphatic: Present: no adenopathy 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 We will attempt another enema of milk of magnesia to promote bowel movement to clear the obstruction. He appears pale but more hydrated than yesterday. He no longer has nausea or vomiting thanks to the nasogastric tube and is draining adequately. He has stable vitals and labs revealed resolution of his leukocytosis with left shift since being started on IV antibiotics, his electrolytes are also adequately balance and his renal function has improved. However the patient had a small drop in his hemoglobin most likely due to the dilutional effect of the IV fluids so follow- up labs have been ordered for reevaluation of anemia. We will reevaluate him in the morning and have a discussion with his about a long-term plan. - Problems/Diagnosis (1) Bowel obstruction Problem: Acute Qualifiers: Intestinal obstruction type: fecal impaction Qualified Code(s): K56.41 - Fecal impaction (2) Dehydration Problem: Acute (3) Acute medical illness Problem: Acute (4) UTI (urinary tract infection) Problem: Acute (5) Sepsis Problem: Acute (6) Prostate cancer metastatic to bone Problem: Acute (7) Bladder cancer metastasized to bone Problem: Acute (8) Aspiration into respiratory tract Problem: Acute (9) Nausea and vomiting in adult Problem: Resolved (10) Nasogastric tube present Problem: Acute (11) Anemia Problem: Acute Qualifiers: Other causes of anemia: chronic disease, other
[2019-11-03] MEDS ORDERED: DEXTROSE 5%-0.5 NORMAL SALINE 1,000 ML IV PRN (22:33)
[2019-11-04 07:16] LABS: Albumin * 1.4 gm/dl (3.4-5.0); Anion Gap 9.7 mmol/L (6.8-13.8); BUN/Creatinine Ratio 15.6 (9.0-21.6); Bilirubin, Total 0.3 mg/dL (0.0-1.1); Carbon Dioxide 25.7 mmol/L (24-32.6); Potassium 3.4 mmol/L (3.4-4.6); Total Protein 4.7 gm/dL (6.2-8.2)
[2019-11-04 07:43] LABS: Ca. Corrected For Albumin 7.8 mg/dL (8.4-10.2)
[2019-11-04] MEDS: SENNOSIDES 8.6 MG TABLET PO SCH (09:24)
[2019-11-04] MEDS: POLYETHYLENE GLYCOL 3350 17 GM PACKET PO SCH (09:24)
--- NOTE | 2019-11-04 10:38 | DS ---
(1) Bowel obstruction Problem: Resolved Qualifiers: Intestinal obstruction type: fecal impaction Qualified Code(s): K56.41 - Fecal impaction (2) Dehydration Problem: Resolved (3) Acute medical illness Problem: Resolved (4) UTI (urinary tract infection) Problem: Ruled-out (5) Sepsis Problem: Resolved (6) Prostate cancer metastatic to bone Problem: Chronic (7) Bladder cancer metastasized to bone Problem: Chronic (8) Aspiration into respiratory tract Problem: Ruled-out (9) Nausea and vomiting in adult Problem: Resolved (10) Nasogastric tube present Problem: Resolved (11) Anemia Problem: Chronic Qualifiers: Other causes of anemia: chronic disease, other Date of Discharge:: 11/04/19 Procedures Performed: see notes below - Nasogastric tube placement List Procedures: Nasogastric tube placement. Results and Findings: Pending Mircobiology Results 11/01/19 21:03 Blood Blood Culture - Preliminary NO GROWTH AFTER 48 HOURS 11/01/19 17:00 Blood Blood Culture - Preliminary NO GROWTH AFTER 48 HOURS Lab Pending Results 11/01/19 17:00: WBC 17.5 H, RBC 3.45 L, Hgb 8.4 L, Hct 27.4 L, MCV 79.4, MCH 24.3 L, MCHC 30.7 L, RDW 22.0 H, Plt Count 233, MPV 8.7, Neutrophils % (Manual) 86 H, Band Neuts % (Manual) 12 H, Lymphocytes % (Manual) 1 L, Immature Granulocytes 1, Neutrophils # (Manual) 15.1 H, Lymphocytes # (Manual) 0.2 L, Platelet Estimate Normal, Anisocytosis 2+, [place] Cells 1+, Elliptocytes 1+ 11/01/19 17:00: Sodium 133, Plasma Sodium 134, Potassium 3.6, Chloride 99, Carbon Dioxide 22.9 L, Anion Gap 14.7 H, BUN 20, Creatinine 1.26, Est GFR (Non- Af Amer) 58 L, BUN/Creatinine Ratio 15.9, Random Glucose 151 H, Calcium 6.4 L, Calcium Adj for Albumin 7.8 L, Total Bilirubin 0.5, AST 16, ALT 7 L, Alkaline Phosphatase 291 H, Total Protein 5.6 L, Albumin 1.9 L, Amylase 47, Lipase 34 L 11/01/19 17:00: Lactic Acid, Venous 2.0 11/01/19 18:14: Urine Color Yellow, Urine Appearance Cloudy, Urine pH 6.0, Ur Specific Beat[place] >=1.030, Urine Protein 100 H, Urine Glucose (UA) 250 H, Urine Ketones 5, Urine Blood 50 H, Urine Nitrate Negative, Urine Bilirubin 1 H, Urine Ictotest Negative, Prot Sulfosalicylic Acd 2+ H, Urine Urobilinogen Normal, Ur Leukocyte Esterase Negative, Urine RBC 5-10 H, Urine WBC 5-10 H, Ur Epithelial Cells Trace, Urine Bacteria 1+ H, Coarse Granular Casts 10-25 H, WBC Casts 10-25 H, Urine Mucus Moderate - 2+ H, Urine Culture Comments Culture to follow 11/02/19 01:10: Lactic Acid, Venous 2.4 H* 11/03/19 06:55: WBC 9.4 D, RBC 3.22 L, Hgb 7.9 L*, Hct 25.7 L, MCV 79.8, MCH 24.5 L, MCHC 30.7 L, RDW 21.9 H, Plt Count 252, MPV 8.7, Immature Gran % (Auto) 2.10 H, Immature Gran # (Auto) 0.20 H, Neutrophils % 91.0 H, Lymphocytes % 2.1 L, Monocytes % 4.5, Eosinophils % 0.2, Basophils % 0.1, Nucleated RBC % 0.0, Neutrophils # 8.6 H, Lymphocytes # 0.20 L, Monocytes # 0.4, Eosinophils # 0.0, Absolute Basophils 0.0 11/03/19 06:55: Sodium 136, Plasma Sodium 136, Potassium 3.4, Chloride 103, Carbon Dioxide 23.4 L, Anion Gap 13.0, BUN 17, Creatinine 0.99, Est GFR (Non-Af Amer) 77 D, BUN/Creatinine Ratio 17.2, Random Glucose 92 D, Calcium 6.2 L, Calcium Adj for Albumin 7.8 L, Total Bilirubin 0.4, AST 16, ALT 6 L, Alkaline Phosphatase 230 H, Total Protein 5.0 L, Albumin 1.6 L 11/04/19 06:10: Sodium 136, Plasma Sodium 136, Potassium 3.4, Chloride 104, Carbon Dioxide 25.7, Anion Gap 9.7, BUN 15, Creatinine 0.96, Est GFR (Non-Af Amer) 79, BUN/Creatinine Ratio 15.6, Random Glucose 119 H, Calcium 6.0 L, Calcium Adj for Albumin 7.8 L, Total Bilirubin 0.3, AST 16, ALT 5 L, Alkaline Phosphatase 215 H, Total Protein 4.7 L, Albumin 1.4 L Discharge Location: Home Disposition: Hospice Home Condition: Stable Face to Face Encounter completed per [facility] Guidelines: Yes Discharge Activity: Activity as tolerated Discharge Diet: Clear Liquids Referrals: Elijah Moralez MD [Primary Care Provider] - Prescriptions (Any new or edited meds): Polyethylene Glycol 3350 [Miralax] 17 gm PO DAILY #30 packet Transmission Status: Received by [id number] Sennosides [Senokot] 8.6 mg PO BID #60 tab Transmission Status: Received by [id number] Complete Home Medications List: Complete Home Medication List: Omeprazole [Prilosec] 40 mg PO DAILY 02/13/15 Melatonin/Pyridoxine HCl (B6) [Melatonin 3 mg Tablet] 3 mg PO HS 11/01/19 Methadone HCl [Methadone] 10 mg PO Q4H 11/01/19 Ondansetron [Zofran Odt] 4 mg PO Q8H PRN 11/01/19 diphenhydrAMINE HCL [Benadryl] 25 mg PO HS PRN 11/01/19 Levothyroxine Sodium [Synthroid] 50 mcg PO DAILY 11/02/19 Polyethylene Glycol 3350 [Miralax] 17 gm PO DAILY #30 packet 11/04/19 Sennosides [Senokot] 8.6 mg PO BID #60 tab 11/04/19 Forms: Patient Portal Registration
[2019-11-04] MEDS: PANTOPRAZOLE SODIUM 40 MG in NORMAL SALINE 100 ML IV SCH (11:23)
[2019-11-04] MEDS: ENOXAPARIN SODIUM 40 MG/0.4 ML SYRG SC SCH (11:24)
[2019-11-04] MEDS ORDERED: METHADONE HCL 10 MG TABLET PO ONE (12:36)
[2019-11-04 14:23] VITALS: BP 124/62
[2019-11-04] MEDS ORDERED: HEPARIN SOD.,PORCINE 100 UNITS/ML IV ONE (14:42)
== END 2019-11-04 15:20 | disposition hospice, home (50) | DRG 872 ==
LOC: ER 15:54 → MS 21:39
PROVIDERS: ADMIT Family Medicine; ATTEND Family Medicine
CPT/HCPCS: 36415; 71010; 71020; 71045; 71046; 74019; 74020; 74177; 80053; 81001; 82150; 83605; 83690; 85025; 87040; 87081; 87086; 96361; 96365; 96375; 96376; 99285; J0131; J2405; Q9963; Q9967